=== PATIENT | female | born 1955 | race African-American/Black ===

== ENCOUNTER 2024-01-07 22:28 | Emergency (ER) | payer BC, MEDICARE ==
[~2024-01-07] VITALS: Ht 154.9 cm; Wt 77.0 kg
[2024-01-07 22:49] VITALS: O2SAT 98
[2024-01-08 01:58] VITALS: BP 174/98; PULSE 94; RESP 19; TEMP 98.4
== END 2024-01-08 02:05 | disposition home or self-care (01) ==
LOC: ER 22:28
DX: I10 Essential (primary) hypertension (principal); Z86.73 Personal history of transient ischemic attack (TIA), and cerebral infarction without residual deficits
CPT/HCPCS: 99281; Z7610

== ENCOUNTER 2024-06-16 10:20 | Emergency (ER) | payer MEDICARE, BC ==
[~2024-06-16] VITALS: Ht 172.7 cm; Wt 80.0 kg
[2024-06-16 10:21] VITALS: O2SAT 99
[2024-06-16] MEDS: SODIUM CHLORIDE 0.9% 1,000 ML IV ONE (10:33)
[2024-06-16 10:55] LABS: BASOPHILS % 0.6 % (0.0-2.0); EOSINOPHILS % 0.9 % (0.0-5.0); HEMOGLOBIN. 12.1 g/dL (12.0-16.0); LYMPHOCYTES % 39.1 % (20.0-50.0); MEAN CORPUSCULAR HEMOGLOBIN 30.7 pg (28.0-32.0); MEAN CORPUSCULAR HGB CONC 34.7 g/dL (31.0-37.0); MEAN CORPUSCULAR VOLUME 88.4 fL (81.0-99.0); MEAN PLATELET VOLUME 7.4 fl (7.4-10.4); NEUTROPHILS % 49.4 % (40.0-76.0); PLATELET 300 x1000/uL (130-400); RED BLOOD CELL COUNT 3.96 mill/uL (4.2-5.4); RED CELL DISTRIBUTION WIDTH 12.9 % (11.6-14.6); WHITE BLOOD COUNT 9.5 x1000/uL (4.5-11.0)
[2024-06-16 11:36] LABS: CHLORIDE 100 mEq/L (98-107); POTASSIUM 3.5 mEq/L (3.5-5.1); SODIUM 132 mEq/L (136-145)
[2024-06-16 11:37] LABS: CALCIUM 9.2 mg/dL (8.7-10.4); CARBON DIOXIDE 20 mEq/L (21-32)
[2024-06-16 11:42] LABS: CREATININE 1.2 mg/dL (0.6-1.0); GLUCOSE 150 mg/dL (70-105); UREA NITROGEN BLOOD 15 mg/dL (9-23)
[2024-06-16 12:26] LABS: TROPONIN I HIGH SENSITIVITY < 4 ng/L (3.0-34)
[2024-06-16 13:35] VITALS: BP 124/67; PULSE 85; RESP 22; TEMP 37.11408; O2SAT 99
== END 2024-06-16 13:36 | disposition home or self-care (01) ==
LOC: ER 10:20
DX: R55 Syncope and collapse (principal); R42 Dizziness and giddiness; I10 Essential (primary) hypertension; Z98.890 Other specified postprocedural states
CPT/HCPCS: 36415; 71045; 80048; 83880; 84484; 85025; 93005; 99285; J7030